=== PATIENT | female | born 1955 | race Caucasian/White ===

== ENCOUNTER 2022-05-14 00:19 | Emergency (ER) | payer MEDICARE, OTHER ==
[2022-05-14] MEDS ORDERED: Sodium Chloride 0.9% 10 ML Syringe FLUSH PRN (00:23)
[2022-05-14] MEDS ORDERED: Sodium Chloride 0.9% 1,000 ML IV SCH ×2 (00:30→01:52)
[2022-05-14] MEDS: Nitroglycerin 0.4 MG Tab.SL SL PRN ×3 (00:30→00:51)
[2022-05-14 00:52] LABS: CHLORIDE,CL 103 mmol/L (98-107); ESTIMATED GFR 68 mL/min (>=60); SODIUM,NA 141 mmol/L (136-145)
[2022-05-14] MEDS ORDERED: Sodium Chloride 0.9% 1,000 ML IV ONE (02:48)
== END 2022-05-14 02:00 | disposition home or self-care (01) ==
LOC: LL.ED 00:19
DX: R07.89 Other chest pain (principal); Z88.6 Allergy status to analgesic agent; Z88.1 Allergy status to other antibiotic agents; Z88.0 Allergy status to penicillin; Z88.2 Allergy status to sulfonamides; Z88.8 Allergy status to other drugs, medicaments and biological substances; Z91.018 Allergy to other foods; Z79.899 Other long term (current) drug therapy; Z87.891 Personal history of nicotine dependence
CPT/HCPCS: 36415; 71046; 80053; 82550; 84484; 85025; 93005; 93010; 96360; 99284; 99285-25; A9270-GY; J7030